=== PATIENT | male | born 1970 | race Caucasian/White ===

== ENCOUNTER 2016-08-10 14:55 | Outpatient (CLI) | payer OTHER ==
[2016-08-10 15:30] LABS: Prothrombin Time 16.4 SEC (12.0-14.7)
[2016-08-10 15:40] LABS: ALT (SGPT) 26 U/L (0-55); AST (SGOT) 58 U/L (5-34); Alkaline Phosphatase 260 U/L (40-150); Anion Gap 12 mmol/L (10-20); BUN (Urea Nitrogen) 7 mg/dL (8.9-20.6); Calc. Creatinine Clearance 0 mL/min (70-130); Calcium 8.4 mg/dL (7.8-10.44); Carbon Dioxide 26 mmol/L (22-29); Chloride 103 mmol/L (98-107); Estimated GFR-MDRD Greater than 90; Globulin 3.6 g/dL (2.4-3.5); Protein, Total 6.6 g/dL (6.0-8.3)
[2016-08-10 15:58] LABS: #Basophils 0.1 thou/uL (0.0-0.2); #Eosinphils 0.2 thou/uL (0.0-0.7); #Lymphocytes 1.1 thou/uL (1.20-3.40); #Monocytes 0.4 thou/uL (0.11-0.59); #Neutrophils 1.8 thou/uL (1.40-6.50); %Basophils 2.1 % (0.0-1.0); %Eosinophils 5.8 % (0.0-10.0); Hematocrit 40.8 % (42.0-52.0); Mean Platelet Volume 8.8 fL (7.4-10.4); Red Blood Cell (RBC) Count 4.48 mill/uL (4.70-6.10); White Blood Cell (WBC) Count 3.6 thou/uL (4.8-10.8)
== END 2016-08-10 14:56 | disposition home or self-care (01) ==
LOC: BURLAB 14:55
PROVIDERS: ATTEND Internal Medicine Gastroenterology
DX: K70.30 Alcoholic cirrhosis of liver without ascites (principal)
CPT/HCPCS: 36415; 80053; 82105; 82140; 85025; 85610

== ENCOUNTER 2017-03-11 02:58 | Emergency (ER) | payer BC, OTHER ==
[2017-03-11] MEDS ORDERED: Adacel (T-DAP) 0.5 ML VIAL ONE (03:22)
== END 2017-03-11 03:49 | disposition home or self-care (01) ==
LOC: BURERS 02:58
DX: S61.031A Puncture wound without foreign body of right thumb without damage to nail, initial encounter (principal); E78.5 Hyperlipidemia, unspecified; E11.9 Type 2 diabetes mellitus without complications; I10 Essential (primary) hypertension; K74.60 Unspecified cirrhosis of liver; Z79.4 Long term (current) use of insulin; Z79.82 Long term (current) use of aspirin; Z79.899 Other long term (current) drug therapy; W26.0XXA Contact with knife, initial encounter
CPT/HCPCS: 90471; 90715

== ENCOUNTER 2020-09-06 16:51 | Emergency (ER) | payer MEDICARE | END 2020-09-06 17:47 | disposition home or self-care (01) | LOC: BURERS 16:51 | DX: T83.011A Breakdown (mechanical) of indwelling urethral catheter, initial encounter (principal); E78.5 Hyperlipidemia, unspecified; E11.9 Type 2 diabetes mellitus without complications; I10 Essential (primary) hypertension; F17.220 Nicotine dependence, chewing tobacco, uncomplicated | CPT/HCPCS: 87086; 99283 ==